=== PATIENT | male | born 1960 | race Caucasian/White ===

== ENCOUNTER 2025-02-18 07:42 | Outpatient (AMB) | payer MEDICARE, OTHER, SELFPAY ==
--- NOTE | 2025-02-18 08:00 | MHC.PC.OV ---
Vital Signs 02/18/25 08:04 Height 5 ft 10.25 in Weight 230 lb 6 oz BMI 32.8 BP 124/70 Blood Pressure Location Lt brachial Position Sitting Respiration 16 Pulse 58 Pulse Source Pulse Oximeter Temp 96.9 F Temp Source Temporal Artery Scan Pulse Oximetry (%) 96 Oxygen Delivery Method Room Air Intake Visit Reasons: Routine, PHYSICAL Vegetable Sorter Required: No Accompanied by: Spouse Allergies latex Allergy (Intermediate, Verified 02/18/25 08:07) Rash Sulfa (Sulfonamide Antibiotics) Allergy (Intermediate, Verified 02/18/25 08:07) Rash Medication List - Last Reconciled 02/18/25 by Shiloh Baker MD amlodipine 10 mg PO DAILY simvastatin 20 mg PO BEDTIME Tobacco use date assessed: 02/18/25 Fall risk assessment: No Falls in past year Dental Screening Dental Screen Date: 02/18/25 Did you have a dental visit in the last 12 months?: Yes Did you have a dental problem in the last 6 months where you did not have access to dental care?: No Was dental information given to patient?: Patient has dentist HPI HPI Comments History of Present Illness Details The patient is a 64 year old male presenting for physical Hearing Loss and Tinnitus: The patient has a 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 The patient also reports tinnitus, which can be bothersome at night. The patient used hearing aids in the past but found they amplified everything and the pitch was incorrect. Obesity: The patient has been actively managing their weight. The patient's weight was 239 lbs in April and is 230 lbs today, noting a loss down to 225 lbs at one point with a 5-pound regain. Weight loss has been achieved through diet and exercise, including biking over 1200 miles in the summer. The patient's diet consists of a morning smoothie, a small lunch such as a protein bar or nuts, and an early dinner. The patient never started the previously discussed weight loss program or GLP-1 medications. Urinary Hesitancy: The patient reports a slow urinary stream upon first waking in the morning, which resolves within about an hour. The patient denies nocturia or dysuria. Hyperlipidemia: The patient takes simvastatin for cholesterol management and denies any muscle aches associated with the medication. The patient also takes CoQ10. Hypertension: The patient is on amlodipine for blood pressure, which was well-controlled at the visit. Palpitations: The patient reports that palpitations have improved since increasing daily water intake, particularly in the morning. Constipation: The patient experiences constipation when traveling, which has been helped by taking a probiotic. The patient reports maintaining fiber intake while traveling, but diet changes from a morning smoothie to yogurt. Preventative Care: The patient's last colonoscopy was performed at [facility], but the patient does not recall the recommended follow-up interval. The patient recently visited [facility] where a couple of benign spots on the face were treated. The patient reports having received a flu shot and a recent Tdap vaccine. Social History: - Alcohol Use: Reports drinking 5-6 alcoholic beverages over the weekend. - Exercise: The patient is active, having biked over 1200 miles during the summer. - Diet: The patient's diet includes a frozen smoothie for breakfast, a small lunch such as a protein bar or nuts, and an early dinner between 4 and 5 p.m. The patient snacks on nuts and dark chocolate. - Hydration: The patient drinks 20 to 30 ounces of water upon waking. Diagnostic Results: - Weight: 230 lbs today, compared to 239 lbs (108.5 kg) in April. - Blood pressure: 124/70 mmHg. [facility] Medical History (Updated 02/19/25 @ 14:53 by Shiloh Baker MD) Routine adult health maintenance Change in hearing Hearing loss, left Cystoid macular edema Mixed hyperlipidemia Primary hypertension Impaired fasting glucose Surgical History (Updated 02/17/25 @ 15:34 by Elba Ackerman) History of colonoscopy (~01/02/24) Family History (Updated 02/18/25 @ 07:45 by Shiloh Baker MD) Other Breast cancer Coronary artery disease Diabetes mellitus Social History Housing: House Patient Tobacco Use Status: Current someday Tobacco user Tobacco use type: Cigar e-Cigarette/Vaping Use: Never Used Current occupational status: retired Questionnaire PHQ-9 Over the last 2 weeks, how often have you been bothered by any of the following problems? 1. Little interest or pleasure in doing things: not at all 2. Feeling down, depressed, or hopeless: not at all 3. Trouble falling or staying asleep, or sleeping too much: not at all 4. Feeling tired or having little energy: not at all 5. Poor appetite or overeating: not at all 6. Feeling bad about yourself - or that you are a failure or have let yourself or your family down: not at all 7. Trouble concentrating on things, such as reading the newspaper or watching television: not at all 8. Moving or speaking so slowly that other people could have noticed. Or the opposite - being so fidgety or restless that you have been moving around a lot more than usual: not at all 9. Thoughts that you would be better off or of hurting yourself in some way: not at all Total score: 0 Depression Screening Interpretation: Negative Depression Screening Done: Yes 07658 - PHQ-9 Billing: Yes Source: Developed by Drs. Lalit Madrid, Ashley Crespo, Tha Corral and colleagues, with an educational anuel from [employer]. Thrive Questionnaire Date Thrive assessed: 02/18/25 I am a: Patient What is your living situation today?: I have a steady place to live Within the past 12 months, did the food you bought not last and you didn't have the money to get more?: Never true Within the past 12 months, did you worry whether your food would run out before you got money to buy more?: Never true Do you have trouble paying for medicines?: No Do you have trouble getting transportation to medical appointments?: No Do you have trouble paying your heating and electricity bill?: No Do you have trouble taking care of your child, family member or friend?: No Do you have trouble with day-to-day activities such as bathing, preparing meals, shopping, managing finances, etc.?: No Are you currently unemployed and looking for a job?: No Are you interested in more education?: No Please select the resources that you would like help with: None THRIVE Score: 0 AUDIT C Alcohol Use Questionnaire (AUDIT-C) 1. How often do you have a drink containing alcohol?: Monthly or less 2. How many drinks containing alcohol do you have on a typical day when you are drinking?: 5 or 6 3. How often do you have six or more drinks on one occasion?: Weekly Total Score: 6 SEAN-7 AMB Questionnaire SEAN-7 Date SEAN - 7 assessed: 02/18/25 Feeling nervous, anxious, or on edge: 0 = Not at all Not being able to stop or control worryin = Not at all Worrying too much about different things: 0 = Not at all Trouble relaxin = Not at all Being so restless that it is hard to sit still: 0 = Not at all Becoming easily annoyed or irritable: 0 = Not at all Feeling afraid as if something awful might happen: 0 = Not at all Total SEAN-7 score (0-4 normal; 5-9 mild; 10-14 moderate; 15-21 severe): 0 Source: Developed by Drs. Lalit Madrid, Ashley Crespo, Tha Corral and colleagues, with an educational anuel from [employer]. Review of Systems Narrative Review of Systems - Constitutional: Denies anxiety; reports good mood. - HEENT: Reports congenital hearing loss in the left ear and gradually worsening hearing in the right ear. - Cardiovascular: Reports improvement in palpitations. - Gastrointestinal: Reports constipation when traveling. - Genitourinary: Reports a slow urinary stream in the morning upon waking. - Musculoskeletal: Denies muscle aches. Physical exam (Primary Care) Vital Signs: Last Vital Signs Temp 96.9 F 02/18/25 08:04 Pulse 58 02/18/25 08:04 Resp 16 02/18/25 08:04 BP 124/70 02/18/25 08:04 Pulse Ox 96 02/18/25 08:04 Oxygen Delivery Method Room Air 02/18/25 08:04 BMI result Body Mass Index 32.8 Tobacco/Smoking Status: Tobacco use Status Tobacco use date assessed 02/18/25 02/18/25 08:01 Patient Tobacco Use Status Current someday Tobacco 02/18/25 08:10 Tobacco use type Cigar 02/18/25 08:10 e-Cigarette/Vaping Use Never Used 02/18/25 08:10 PHQ-9: PHQ-9 Score PHQ-9: Total score 0 02/19/25 11:28 Depression Screening Interpretation: Negative Thrive Assessment: Date of Thrive Assessment Date Thrive assessed 02/18/25 02/18/25 08:20 Narrative Physical Exam - Gen: NAD - Neck: Carotid arteries are clear with no bruits. - HEENT: Otoscopic exam reveals the right ear canal is clear. Left ear- small amount of cerumen - Lungs: Clear to auscultation bilaterally, no wheezing noted. - Cardiovascular: Normal heart sounds with a soft murmur. - Abdomen: Abdomen is soft, non-tender, and non-distended with normal bowel sounds. - Extremities: mild edema is present bilaterally Immunizations pneumoc 20-andrae conj-dip cr(PF) 0.5 mL IM syringe Performing Provider: Shiloh Baker MD Performing Location: [facility] [place] Adult Primary Care-10 HD Administered by: Alivia Kelly CMA on 02/18/25 09:30 Dose Route Admin Location Dispensed Lot Number Expiration Date [facility] [employer] 0.5 mL IM Left Deltoid 0.5 mL [id number] 09/23/25 5695-9565-34 [employer] Total Dispensed Waste 0.5 mL 0 % VIS Given Date VIS Provided VIS Publication Date 02/18/25 Single Vaccine 24 Eligibility Eligibility Date Funding Source Not [facility] Eligible 02/18/25 Private Coding Level of Care Code Est Pt Prev Care >65y(96864) Complex visit Add On G2211 Diagnoses Routine adult health maintenance Z00.00 Change in hearing, unspecified laterality H91.90 Laterality: unspecified laterality Primary hypertension I10 Mixed hyperlipidemia E78.2 Additional Codes PHQ-9 - 26058 - PHQ-9 Billing: Yes ([id number]) Assessment & Plan Assessment & Plan (1) Routine adult health maintenance: Code(s): Z00.00 - Encounter for general adult medical examination without abnormal findings Category: Medical (2) Change in hearing: Code(s): H91.90 - Unspecified hearing loss, unspecified ear Category: Medical Qualifiers: Laterality: unspecified laterality Qualified Code(s): H91.90 - Unspecified hearing loss, unspecified ear (3) Primary hypertension: Code(s): I10 - Essential (primary) hypertension Category: Medical (4) Mixed hyperlipidemia: Code(s): E78.2 - Mixed hyperlipidemia Category: Medical Plan Assessment and Plan 1. Hearing loss and Tinnitus - The patient reports congenital left-sided hearing loss and worsening right-sided hearing. - A [facility]. 2. Cerumen Impaction, Left Ear - Exam reveals 50% occlusion. - The patient is advised to use Debrox drops, five drops twice daily for four days, followed by gentle irrigation to clear the obstruction. 3. Obesity - The patient has demonstrated successful weight loss of 9 lbs since April via diet and exercise. - The patient will continue with these lifestyle modifications. - Medication options like Zepbound and Wegovy were discussed, but the patient wishes to continue current efforts for now. - Will re-evaluate weight in 6 months with an expectation of further loss. 4. Health Maintenance / Preventative Care - Labs: Will check A1C, lipid panel, CMP, PSA, and urine for microalbumin today. - Immunizations: The patient is up to date on flu and Tdap. Recommended staggering Prevnar 20 (today if available), RSV (in 1-2 weeks), and the Shingrix series (starting 2 weeks after RSV). Discussed the COVID-19 vaccine, but the patient remains apprehensive. - Screening: Will request records from [facility] to determine the interval for the next colonoscopy. Will also request records from the recent [facility] visit. Recommended a routine annual eye exam 5. Urinary Hesitancy - The patient reports a slow stream in the morning, likely related to BPH. - Will monitor with a PSA level. - If symptoms such as nocturia or incomplete emptying develop, a urology referral will be considered. 6. Hyperlipidemia and Hypertension - Both conditions are stable on current medications (simvastatin and amlodipine) which are well-tolerated. - Will continue current regimens and monitor with labs and office BP checks. 7. Follow-up - Plan to see the patient in 6 months to review lab results and monitor weight. Plan - Place referral to [facility] for audiologic evaluation. - Advised patient to use Debrox ear drops in the left ear for cerumen impaction, 5 drops twice daily for 4 days, followed by gentle irrigation. - The patient will continue with the current diet and exercise program for weight management. - Labs ordered for today include A1c, lipid panel, CMP, PSA, and urinalysis. - Administer Prevnar 20 vaccine today if available. - Recommended getting the RSV vaccine at a pharmacy in 1-2 weeks. - Recommended scheduling the two-shot Shingrix series, starting 2 weeks after the RSV vaccine. - Discussed getting the updated COVID-19 vaccine, though the patient remains hesitant. Discussion Notes We reviewed the patient's successful weight loss through diet and exercise. The patient expressed a preference to continue with the current lifestyle approach, which I supported. We will reassess weight at the next 6-month follow-up. Patient Instructions - A referral has been sent to the [facility] for a hearing evaluation. - For the wax in your left ear, use Debrox ear drops (5 drops, twice a day) for four days and then gently irrigate it. - Continue with your current diet and exercise efforts for weight management. - You may receive the Prevnar 20 (pneumonia) vaccine today. - Schedule your RSV vaccine at a pharmacy in about two weeks. - Schedule your first Shingrix (shingles) shot two weeks after the RSV vaccine. - Schedule a routine eye exam. - Continue taking your current medications as prescribed. - If you feel sore after a vaccine, you can take extra-strength Tylenol. Orders: Orders Comprehensive Met. Panel 02/18/25 E78.2 - Mixed hyperlipidemia, I10 - Essential (primary) hypertension, R73.01 - Impaired fasting glucose Lipid Panel 02/18/25 E78.2 - Mixed hyperlipidemia, I10 - Essential (primary) hypertension, R73.01 - Impaired fasting glucose Hemoglobin A1c 02/18/25 E78.2 - Mixed hyperlipidemia, I10 - Essential (primary) hypertension, R73.01 - Impaired fasting glucose PSA,Total (Free>4and<10) 02/18/25 E78.2 - Mixed hyperlipidemia, I10 - Essential (primary) hypertension, R73.01 - Impaired fasting glucose Microalbumin, Random (w Creat) 02/18/25 I10 - Essential (primary) hypertension Complete Blood Count Auto Diff 02/18/25 E78.2 - Mixed hyperlipidemia, I10 - Essential (primary) hypertension, R73.01 - Impaired fasting glucose Pneumococcal 20 Immunization 02/18/25 Z23 - Encounter for immunization Referrals Speech and Hearing Referral H91.90 - Unspecified hearing loss, unspecified ear Patient Instructions: GET RSV VACCINE NEXT WEEK, THEN SCHEDULE SHINGRIX SERIES 2 WEEKS AFTER. YOU CAN GET COVID 19 VACCINE BEFORE SHINGRIX IF YOU ARE PLANNING TO TRAVEL.
[2025-02-18 08:04] VITALS: BP 124/70; PULSE 58; RESP 16; TEMP 36.1; O2SAT 96; BMI 32.8
== END 2025-02-18 09:02 | disposition home or self-care (01) ==
LOC: HO.HMCHD 07:42
PROVIDERS: PCP Internal Medicine; Visit Provider Internal Medicine
DX: Z23 Encounter for immunization (principal)

== ENCOUNTER → 2025-02-18 07:42 | Outpatient (BNVA) | payer MEDICARE, OTHER, SELFPAY | PROVIDERS: PCP Internal Medicine; Visit Provider Internal Medicine | DX: Z00.00 Encounter for general adult medical examination without abnormal findings (principal); H93.19 Tinnitus, unspecified ear; H90.3 Sensorineural hearing loss, bilateral; I10 Essential (primary) hypertension; E78.2 Mixed hyperlipidemia; H61.23 Impacted cerumen, bilateral; E66.9 Obesity, unspecified; R73.01 Impaired fasting glucose; R39.11 Hesitancy of micturition; Z23 Encounter for immunization; Z12.5 Encounter for screening for malignant neoplasm of prostate | CPT/HCPCS: 36415; 80053; 80061; 82570; 83036; 84153; 85025; 90471; 90677; 96127; 99397 ==